=== PATIENT | female | born 1965 | race Caucasian/White ===

== ENCOUNTER 2016-10-29 10:02 | Emergency (ER) | payer OTHER ==
[2016-10-29 10:03] VITALS: BMI 28.3
[2016-10-29 10:11] VITALS: BP 114/69; PULSE 75; RESP 18; TEMP 98; O2SAT 98
[2016-10-29] MEDS ORDERED: Sodium Chloride 0.9% 1,000 ML IV STA (10:36)
[2016-10-29] MEDS ORDERED: DiphenhydrAMINE 50 mg/ml Inj IVP STA (10:36)
[2016-10-29] MEDS ORDERED: DiphenhydrAMINE 50 mg/ml Inj ONE (10:43)
--- NOTE | 2016-10-29 10:44 | ED PDOC ---
HPI: Allergic Reaction Time Seen by Provider: 10/29/16 10:36 Chief Complaint (Nursing): Allergic Reaction Chief Complaint (Provider): allergic reaction History Per: Patient History/Exam Limitations: no limitations Additional Complaint(s): 51yo F in ED for eval of allergic reaction-occurred yesterday after consuming green tea-states she noted swelling to eyes, lips, itchy throat palpitations ad some difficulty with breathing. she took Benadryl, symptoms subsided but returned this AM. denies inability to breathe, swelling of tongue,feet or hands. no hx of allergic reactions. Past Medical History Reviewed: Historical Data, Nursing Documentation, Vital Signs Vital Signs: Last Vital Signs Temp 98.0 F 10/29/16 10:10 Pulse 75 10/29/16 10:10 Resp 18 10/29/16 10:10 BP 114/69 10/29/16 10:10 Pulse Ox 98 10/29/16 10:10 - Medical History PMH: HTN, Hypercholesterolemia Denies: Chronic Kidney Disease - Surgical History Surgical History: Appendectomy, Cholecystectomy - Family History Family History: States: Unknown Family Hx - Home Medications Home Medications: Ambulatory Orders Medication Instructions Recorded Famotidine [Pepcid] 20 mg PO BID #30 tab 02/27/16 Silver Sulfadiazine 1% 50 gm 1 applic TOP BID PRN #0 jar 02/27/16 [Silvadene 1% 50 gm] Ciprofloxacin [Cipro] 500 mg PO BID #10 tab 03/10/16 Metronidazole [Flagyl] 500 mg PO TID #15 tablet 03/10/16 oxyCODONE/Acetaminophen [Percocet 1 ea PO Q6 #20 tab 03/10/16 5/325 mg Tab] Famotidine [Pepcid] 20 mg PO BID #16 tab 10/29/16 predniSONE [predniSONE Tab] 20 mg PO BID #8 tab 10/29/16 - Allergies Allergies/Adverse Reactions: Allergies Allergy/AdvReac Type Severity Reaction Status Date / Time No Known Allergies Allergy Verified 10/29/16 10:09 Review of Systems ROS Statement: Except As Marked, All Systems Reviewed And Found Negative Constitutional: Negative for: Fever, Chills Eyes: Positive for: Eyelid Inflammation Cardiovascular: Negative for: Chest Pain, Palpitations Respiratory: Positive for: Shortness of Breath Gastrointestinal: Negative for: Nausea, Vomiting, Abdominal Pain, Diarrhea Genitourinary Female: Negative for: Dysuria Skin: Negative for: Rash Physical Exam - Reviewed Nursing Documentation Reviewed: Yes Vital Signs Reviewed: Yes - Physical Exam Appears: Positive for: Non-toxic, No Acute Distress Head Exam: Positive for: ATRAUMATIC, NORMAL INSPECTION, NORMOCEPHALIC Skin: Positive for: Normal Color, Warm, DRY Eye Exam: Positive for: EOMI, PERRL, Periorbital swelling. Negative for: Normal appearance ENT: Positive for: Normal ENT Inspection, Pharyngeal Erythema. Negative for: Nasal Congestion, Tonsillar Exudate, Tonsillar Swelling Neck: Positive for: Normal, Painless ROM Cardiovascular/Chest: Positive for: Regular Rate, Rhythm Respiratory: Positive for: CNT, Normal Breath Sounds Gastrointestinal/Abdominal: Positive for: Normal Exam, Bowel Sounds, Soft. Negative for: Tenderness Extremity: Positive for: Normal ROM. Negative for: Swelling Lymphatic: Positive for: Normal Exam Neurologic/Psych: Positive for: Alert, Oriented - ECG O2 Sat by Pulse Oximetry: 98 - Progress ED Course And Treament: pt most likely with allergic reactions however due to some difficulty with breathing in ED will give benadrly, steroids and pepcid with IV fluids. Re-evaluation Time: 12:57 Condition: Improved Disposition - Clinical Impression Clinical Impression: Acute allergic reaction - Patient ED Disposition Is Patient to be Admitted: No Counseled Patient/Family Regarding: Diagnosis, Need For Followup, Rx Given - Disposition Referrals: [facility] [Outside] Disposition: Routine/Home Disposition Time: 10:46 Condition: STABLE Prescriptions: Famotidine [Pepcid] 20 mg PO BID #16 tab predniSONE [predniSONE Tab] 20 mg PO BID #8 tab Instructions: Prednisone (By mouth), Food Allergy (ED) Print Language: ROMANIAN Medical Decision Making ED Course and Treatment: 10/29/16 12:57 PT improved in ED and will be d/c with prednisone, Benadryl,adn advised to f.u with internal communications writer and monitor symptoms and if worsened to return to ED. Re-evaluation Time: 12:57 Reassessment Condition: Re-examined, Improved - Medication Orders Current Medication Orders: Discontinued Medications Diphenhydramine HCl (Benadryl) 25 mg IVP STAT STA Stop: 10/29/16 10:37 Last Admin: 10/29/16 10:51 Dose: 25 mg Diphenhydramine HCl (Benadryl) Confirm Administered Dose 50 mg .ROUTE .STK-MED ONE Stop: 10/29/16 10:44 Famotidine (Pepcid) 20 mg IVP STAT STA Stop: 10/29/16 10:37 Last Admin: 10/29/16 10:51 Dose: 20 mg Famotidine (Pepcid) Confirm Administered Dose 20 mg .ROUTE .STK-MED ONE Stop: 10/29/16 10:43 Sodium Chloride (Sodium Chloride 0.9%) 1,000 mls @ 1,000 mls/hr IV .Q1H STA Stop: 10/29/16 11:35 Last Admin: 10/29/16 10:52 Dose: 1,000 mls/hr Methylprednisolone (Solu-Medrol) 125 mg IVP ONCE ONE Stop: 10/29/16 10:37 Last Admin: 10/29/16 10:51 Dose: 125 mg Methylprednisolone (Solu-Medrol) Confirm Administered Dose 125 mg .ROUTE .STK- MED ONE Stop: 10/29/16 10:44
== END 2016-10-29 13:37 | disposition home or self-care (01) ==
LOC: H.ER 10:02
DX: T78.40XA Allergy, unspecified, initial encounter (principal); E78.00 Pure hypercholesterolemia, unspecified; I10 Essential (primary) hypertension; R06.02 Shortness of breath; H57.8 Other specified disorders of eye and adnexa

== ENCOUNTER 2017-10-09 23:10 | Emergency (ER) | payer OTHER ==
[2017-10-09 23:11] VITALS: BMI 28.3
[2017-10-09 23:27] VITALS: TEMP 97.7
[2017-10-10 00:48] LABS: BASO # 0.1 K/uL (0.0-0.2); BASO % 0.9 % (0.0-2.0); EOS # 0.4 K/uL (0.0-0.7); EOS % 7.3 % (0.0-4.0); HEMOGLOBIN 11.7 g/dL (12.0-16.0); LYMPH # 1.9 K/uL (1.0-4.3); LYMPH % 32.3 % (20.0-40.0); MEAN CELL VOLUME 86.6 fl (81.0-99.0); MEAN CORPUSCULAR HEMOGLOBIN 30.3 pg (27.0-31.0); MEAN PLATELET VOLUME 7.5 fl (7.2-11.7); MONO # 0.5 K/uL (0.0-0.8); MONO % 8.6 % (0.0-10.0); NEUT % 50.9 % (50.0-75.0); RBC 3.87 Mil/uL (3.80-5.20); RED CELL DISTRIBUTION WIDTH 13.5 % (11.5-14.5); WHITE BLOOD COUNT 5.8 K/uL (4.8-10.8)
--- NOTE | 2017-10-10 00:53 | ED PDOC ---
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 Patient notes associated swelling around right eye with pain. (-) fever, vomiting, or dizziness. Upon provider arrival to room, patient is sleeping. PCP: Stella Fischer Past Medical History Reviewed: Historical Data, Nursing Documentation, Vital Signs Vital Signs: Last Vital Signs Temp 97.7 F 10/09/17 23:23 Pulse 78 10/09/17 23:23 Resp 18 10/09/17 23:23 BP 96/54 L 10/09/17 23:23 Pulse Ox 99 10/09/17 23:23 - Medical History PMH: HTN, Hypercholesterolemia Denies: Chronic Kidney Disease Other PMH: spinal AVM - Surgical History Surgical History: Appendectomy, Cholecystectomy Other surgeries: avm spine - Family History Family History: States: Unknown Family Hx - Living Arrangements Living Arrangements: With Family - Home Medications Home Medications: Ambulatory Orders Medication Instructions Recorded Famotidine [Pepcid] 20 mg PO BID #30 tab 02/27/16 Silver Sulfadiazine 1% 50 gm 1 applic TOP BID PRN #0 jar 02/27/16 [Silvadene 1% 50 gm] Ciprofloxacin [Cipro] 500 mg PO BID #10 tab 03/10/16 Metronidazole [Flagyl] 500 mg PO TID #15 tablet 03/10/16 oxyCODONE/Acetaminophen [Percocet 1 ea PO Q6 #20 tab 03/10/16 5/325 mg Tab] Famotidine [Pepcid] 20 mg PO BID #16 tab 10/29/16 predniSONE [predniSONE Tab] 20 mg PO BID #8 tab 10/29/16 Tobramycin 0.3% [Tobrex 0.3% Ophth 1 drop OD Q4H #1 bottle 10/10/17 Soln] - Allergies Allergies/Adverse Reactions: Allergies Allergy/AdvReac Type Severity Reaction Status Date / Time No Known Allergies Allergy Verified 10/29/16 10:09 Review of Systems ROS Statement: Except As Marked, All Systems Reviewed And Found Negative Constitutional: Negative for: Fever Eyes: Positive for: Pain (right eye pain with swelling around eye) Gastrointestinal: Negative for: Vomiting Neurological: Positive for: Headache (right-sided). Negative for: Dizziness Physical Exam - Reviewed Nursing Documentation Reviewed: Yes Vital Signs Reviewed: Yes - Physical Exam Appears: Positive for: Non-toxic, No Acute Distress Skin: Positive for: Normal Color, Warm, Dry Eye Exam: Positive for: Normal appearance, EOMI, PERRL Neck: Positive for: Normal, Painless ROM, Supple Cardiovascular/Chest: Positive for: Regular Rate, Rhythm. Negative for: Murmur Respiratory: Positive for: Normal Breath Sounds. Negative for: Respiratory Distress Gastrointestinal/Abdominal: Positive for: Soft. Negative for: Tenderness Extremity: Positive for: Normal ROM. Negative for: Deformity Neurologic/Psych: Positive for: Alert, crusher II-XII, Oriented, Gait (stable). Negative for: Motor/Sensory Deficits, Aphasia, Facial Droop - Laboratory Results Result Diagrams: 10/10/17 00:39 10/10/17 00:39 - ECG O2 Sat by Pulse Oximetry: 99 (RA) Pulse Ox Interpretation: Normal Medical Decision Making Medical Decision Makin Initial impression: right-sided headache r/o intracranial process Initial plan: * CT HEAD * Labs * Acetaminophen 650mg PO * Re-eval 0140 CT FINDINGS: Brain: Unremarkable. No hemorrhage. No significant white matter disease. No edema. Ventricles: Unremarkable. No ventriculomegaly. Bones/joints: Unremarkable. No acute fracture. Soft tissues: Unremarkable. Sinuses: There is mild mucoperiosteal thickening in the ethmoid sinuses, consistent with chronic sinusitis. Mastoid air cells: Unremarkable as visualized. No mastoid effusion. IMPRESSION: No acute intracranial findings. Chronic sinusitis. 0150 Labs reviewed: sugar is slightly elevated and potassium level is slightly reduced * Potassium Chloride 20 meq PO Carmelo-Pen attempt: successful. 3 readin, 4, and 13 - all normal readings. Patient is stable for discharge home and agrees to follow up with PCP within 1- 2 days. Return precautions given. Dx: right eye pain and headache will treat for infection in R eye empirically Scribe Attestation: Documented by Almita Reynolds, acting as a scribe for Lary Breaux MD. Provider Scribe Attestation: All medical record entries made by the Scribe were at my direction and personally dictated by me. I have reviewed the chart and agree that the record accurately reflects my personal performance of the history, physical exam, medical decision making, and the department course for this patient. I have also personally directed, reviewed, and agree with the discharge instructions and disposition. Disposition - Clinical Impression Clinical Impression: Conjunctivitis - Patient ED Disposition Is Patient to be Admitted: No Counseled Patient/Family Regarding: Studies Performed, Diagnosis, Need For Followup - Disposition Referrals: Matt Olivas MD [Primary Care Provider] - Disposition: Routine/Home Disposition Time: 01:45 Condition: IMPROVED Additional Instructions: follow up with your primary doctor in 1-2 days return to the ED with any worsening or concerning symptoms Prescriptions: Tobramycin 0.3% [Tobrex 0.3% Ophth Soln] 1 drop OD Q4H #1 bottle Instructions: Conjunctivitis ([place]) Forms: [facility] ([place])
[2017-10-10 00:57] LABS: ALB/GLOB RATIO 1.2 (1.0-2.1); ALBUMIN 3.9 g/dL (3.5-5.0); ALT/SGPT 34 U/L (9-52); AST/SGOT 28 U/L (14-36); BLOOD UREA NITROGEN 18 mg/dl (7-17); CALCIUM 8.8 mg/dL (8.4-10.2); GFR AFRICAN-AMERICAN > 60; GFR NON-AFRICAN AMERICAN > 60
--- NOTE | 2017-10-10 01:40 | CT ---
EXAM: CT Head Without Intravenous Contrast CLINICAL HISTORY: 52 years old, female; Pain; Headache TECHNIQUE: Axial computed tomography images of the head/brain without intravenous contrast. All CT scans at this facility use one or more dose reduction techniques, viz.: automated exposure control; ma/kV adjustment per patient size (including targeted exams where dose is matched to indication; i.e. head); or iterative reconstruction technique. Coronal and sagittal reformatted images were created and reviewed. COMPARISON: CT - HEAD W/O CONTRAST 2015-02-13 23:08 FINDINGS: Brain: Unremarkable. No hemorrhage. No significant white matter disease. No edema. Ventricles: Unremarkable. No ventriculomegaly. Bones/joints: Unremarkable. No acute fracture. Soft tissues: Unremarkable. Sinuses: There is mild mucoperiosteal thickening in the ethmoid sinuses, consistent with chronic sinusitis. Mastoid air cells: Unremarkable as visualized. No mastoid effusion. IMPRESSION: No acute intracranial findings. Chronic sinusitis.
[2017-10-10] MEDS ORDERED: Potassium Chloride 20 mEq ER Tab PO ONE (01:47)
[2017-10-10] MEDS ORDERED: Tetracaine 0.5% Ophth 2 ML BOTTLE ONE (02:09)
[2017-10-10 03:24] VITALS: BP 97/54; PULSE 73; RESP 14
[2017-10-10 05:36] VITALS: O2SAT 99
== END 2017-10-10 03:28 | disposition home or self-care (01) ==
LOC: H.ER 23:10
DX: H10.9 Unspecified conjunctivitis (principal); E78.00 Pure hypercholesterolemia, unspecified; I10 Essential (primary) hypertension